=== PATIENT | male | born 1965 | race Caucasian/White ===

== ENCOUNTER 2017-05-16 06:31 | Day surgery (SDC) | payer BC, OTHER ==
[2017-05-14 12:59] VITALS: BMI 28.8
[2017-05-16 06:59] VITALS: TEMP 97.7
[2017-05-16] MEDS ORDERED: BUPIVACAINE HCL/PF 0.5% (5MG/ML) 10 ML VIAL ONE (07:44)
--- NOTE | 2017-05-16 07:44 | HP ---
History & Physical Update - History History: No Change - Physical Physical: No Change - Assessment Assessment: No Change - Plan Plan: No Change
[2017-05-16] MEDS ORDERED: MIDAZOLAM HCL 2 MG/2 ML SINGLE DOSE VIAL ONE ×2 (07:55)
[2017-05-16] MEDS ORDERED: ROCURONIUM BROMIDE 50 MG/5 ML VIAL ONE (07:55)
[2017-05-16] MEDS ORDERED: PROPOFOL 20 ML ONE (07:55)
[2017-05-16] MEDS ORDERED: DEXAMETHASONE SOD PHOSPHATE 4 MG/1 ML VIAL ONE (08:30)
[2017-05-16] MEDS ORDERED: ceFAZolin SODIUM 1 GM VIAL ONE (08:30)
[2017-05-16] MEDS ORDERED: ceFAZolin SODIUM 1 GM VIAL IVPB ONE (08:32)
[2017-05-16] MEDS ORDERED: BUPIVACAINE HCL/PF 0.5% (5MG/ML) 10 ML VIAL IJ ONE (08:41)
[2017-05-16] MEDS ORDERED: NEOSTIGMINE METHYLSULFATE 0.5 MG/ML - 10 ML MDV ONE (10:32)
[2017-05-16] MEDS ORDERED: GLYCOPYRROLATE 0.2 MG/1 ML VIAL ONE (10:34)
[2017-05-16] MEDS ORDERED: KETOROLAC TROMETHAMINE 30 MG/1 ML VIAL ONE (10:35)
[2017-05-16] MEDS ORDERED: ONDANSETRON 4 MG/2 ML VIAL IVPUSH PRN (11:18)
[2017-05-16] MEDS ORDERED: oxyCODONE HCL 5 MG TABLET PO PRN (11:18)
--- NOTE | 2017-05-16 11:23 | OP ---
Operative Note - Note: Operative Date: 05/16/17 Pre-Operative Diagnosis: LEFT INGUINAL HERNIA, R/O BILATERAL INGUINAL HERNIA Operation: ROBOTIC LEFT INGUINAL HERNIA REPAIR WITH MESH AND EXCISION OF LIPOMA OF THE CORD Findings: MODERATE SIZED INDIRECT LEFT INGUINAL HERNIA CONTAINING OMENTUM LARGE LIPOMA OF THE CORD, MINISCULE DIMPLING OF THE RIGHT INTERNAL INGUINAL RING Implants: PROGRIP MESH Post-Operative Diagnosis: Other (LEFT INGUINAL HERNIA AND LIPOMA OF THE CORD) Surgeon: Alberto Keenan Lab Rn: Therese Cortes Anesthesia: General Specimens Removed: LIPOMA OF THE CORD Estimated Blood Loss (mls): 5 Operative Report Dictated: Yes
--- NOTE | 2017-05-16 11:24 | SURG ---
Surgery Remodeler Note Remodeler: Therese Cortes PA-C Date of Service: 05/16/17 Diagnosis: LEFT INGUINAL HERNIA, R/O BILATERAL INGUINAL HERNIA Procedure: ROBOTIC LEFT INGUINAL HERNIA REPAIR WITH MESH AND EXCISION OF LIPOMA OF THE CORD I was present for the entirety of the operative procedure. For further detail, please refer to operative report. Visit type - Case Type Case Type: Scheduled Admission - Emergency Emergency Visit: No - New patient This patient is new to me today: Yes Date on this admission: 05/16/17 - Critical Care Critical Care patient: No
[2017-05-16] MEDS ORDERED: LACTATED RINGERS SOLUTION 1,000 ML IV SCH (11:30)
[2017-05-16 14:31] VITALS: BP 117/70; PULSE 74
--- NOTE | 2017-05-16 14:45 | OP ---
DATE OF OPERATION: 05/16/2017 PROCEDURE: Robotic-assisted laparoscopic left inguinal hernia repair and excision of a lipoma of the cord. PREOPERATIVE DIAGNOSIS: Left inguinal hernia. POSTOPERATIVE DIAGNOSES: Left inguinal hernia and lipoma of the cord. SURGEON: Alberto Keenan MD RENTAL COORDINATOR: ROSALINE Gross ANESTHESIA: General endotracheal. FINDINGS AND PROCEDURE: This is a 51-year-old male who presents with left inguinal bulge associated with pain on exertion. Patient has a preoperative CT scan that revealed bilateral fat-containing inguinal hernia, left more than right. On physical exam, the patient has a reducible 2-cm bulge at the left inguinal region and a positive silk-glove sign. In the right inguinal region, there was no discernible defect or bulge on Valsalva maneuver and there was a negative silk-glove sign. So patient was advised elective inguinal hernia repair, possible bilateral, and consent was obtained after discussing the risks, benefits, and alternatives to the procedure. Patient was brought to the operating room and placed in the supine position. General endotracheal anesthesia was administered. Calvo catheter was inserted and the abdomen was prepped and draped in the usual sterile fashion. Both arms were tucked to the sides. The peritoneal cavity was entered using the Veress needle technique via an 8-mm supraumbilical incision to the left of the midline. Pneumoperitoneum was established. An 8-mm port was inserted into the incision followed by the insertion of the 3D laparoscope. The peritoneal cavity was carefully inspected and was noted to be free of inadvertent injury. Patient was then placed in the steep Trendelenburg position. The left inguinal region was inspected and was noted to contain a moderate-sized internal ring defect with a small piece of omentum incarcerating to the hernia sac. On the right side, a minuscule indentation of the internal ring was noted, but the edge of the peritoneum was still visible. Two 8-mm ports were inserted at the same level on each side 8 mm away from the supraumbilical port. The target organ was set and the robotic arms were docked. The EndoWrist romina connected to monopolar cautery was inserted in the right-sided port and the fenestrated bipolar forceps was inserted in the left-sided port. It was decided upon to repair the left inguinal hernia only. The undersigned scrubbed out and commenced the console part of the procedure. The parietal peritoneum was scored at the level of the anterior-superior iliac spine towards the median umbilical ligament using the EndoWrist romina. Then, a preperitoneal pocket was then created by using blunt and sharp dissection with both instruments. Using the inferior epigastric vessel as the landmark, dissection was carried medially towards the underside of the symphysis pubis. Laterally, this dissection was carried towards the anterior-superior iliac spine and inferiorly towards the hernia sac. The spermatic cord vessels were identified and isolated from the iliac vessels medially and the psoas muscle inferolaterally. The hernia sac was traced towards the tip and this was dissected away from the spermatic vessels and the vas deferens. A large lipoma of the cord at the lateral portion was also excised. The hernia sac was dissected all the way superiorly down until at least about 7 cm away from the attenuated internal ring. Thorough dissection of the peritoneal reflection was done until an adequate space was created for mesh placement. The 15 x 10.5-cm ProGrip mesh was then deployed and placed in such a way that there is at least 5 cm circumferential overlap around the indirect inguinal hernia. The mesh also covered the potential direct hernia site and the femoral hernia site. After deployment was deemed satisfactory, the peritoneal pocket was closed with running V-Loc 2-0 sutures. The lipoma of the cord was placed in an Endobag and extracted via the right-sided port. The robotic arms were then undocked and the pneumoperitoneum was evacuated. The ports were removed and the wounds were closed with subcuticular Biosyn 4-0 sutures reinforced with Dermabond. The Calvo catheter was removed and the patient was successfully extubated. The patient was transferred to the postanesthesia care unit in satisfactory condition. Estimated blood loss was about 5 mL. Wound class clean. The patient received 2 g of cefazolin prior to the start of the procedure. Kiki [id number] MTDTonie
--- NOTE | 2017-05-18 17:11 | PATH ---
Surgical Pathology Report Patient Name: CONTRERAS IBARRA [facility]. Rec. #: [id number] /Age/Gender: 1965 (Age: 51) / M Account: [id number] Location: [facility] SURGICAL Taken: 05/16/2017 Received: 05/16/2017 Reported: 05/18/2017 Physicians: Alberto Keenan M.D. Specimen(s) Received LIPOMA OF CORD Clinical History Left inguinal hernia Final Diagnosis SOFT TISSUE, LEFT INGUINAL, EXCISION: BENIGN ADIPOSE TISSUE CONSISTENT WITH CORD LIPOMA. Electronically Signed Chan Reed M.D. Gross Description Received in formalin labeled "lipoma of the cord," is a 6.0 x 3.4 x 1.5 cm portion of yellow, lobulated adipose tissue with attached fibromembranous tissue. Sectioning reveals homogeneous yellow, smooth fat. No areas of hemorrhage or necrosis are identified. Airline Radio Operator sections are submitted in one cassette. 05/16/2017 saudi05/16/2017
== END 2017-05-16 14:20 | disposition home or self-care (01) ==
LOC: JASU-SURG 06:31
PROVIDERS: ATTEND Surgery
PROC: 8E0W4CZ Robotic Assisted Procedure of Trunk Region, Percutaneous Endoscopic Approach (ICD-10-PCS; 2017-05-16)
PROC: 0YU64JZ Supplement Left Inguinal Region with Synthetic Substitute, Percutaneous Endoscopic Approach (ICD-10-PCS; principal; 2017-05-16 08:00)
DX: K40.90 Unilateral inguinal hernia, without obstruction or gangrene, not specified as recurrent (principal); D17.6 Benign lipomatous neoplasm of spermatic cord
CPT/HCPCS: 49650; S2900; 88304-TC; 94760

== ENCOUNTER 2023-07-27 04:40 | Day surgery (SDC) | payer BC, OTHER ==
[2023-07-25 19:56] VITALS: BMI 29.2
[2023-07-27] MEDS ORDERED: ACETAMINOPHEN 1000 MG/100 ML BAG IVPB ONE (13:47)
[2023-07-27] MEDS ORDERED: DEXTROSE 5%-0.45% SALINE 1,000 ML IV SCH (14:00)
[2023-07-27] MEDS ORDERED: IBUPROFEN 800 MG/8 ML IJ IVPB SCH (14:00)
[2023-07-27] MEDS ORDERED: ceFAZolin SODIUM 1 GM VIAL ONE (14:21)
[2023-07-27] MEDS ORDERED: LIDOCAINE HCL/PF 2% SDV 5ML VIAL ONE (14:21)
[2023-07-27] MEDS ORDERED: MIDAZOLAM HCL 2 MG/2 ML SINGLE DOSE VIAL ONE (14:21)
[2023-07-27] MEDS ORDERED: PROPOFOL 20 ML ONE (14:21)
[2023-07-27] MEDS ORDERED: FENTANYL CITRATE/PF 50 MCG/ML VIAL ONE (14:21)
[2023-07-27] MEDS ORDERED: ceFAZolin SODIUM 1 GM VIAL IVPB ONE (14:35)
[2023-07-27] MEDS ORDERED: DEXAMETHASONE SOD PHOSPHATE 4 MG/1 ML VIAL ONE (14:40)
[2023-07-27] MEDS ORDERED: oxyCODONE HCL 5 MG TABLET PO PRN (15:04)
[2023-07-27] MEDS ORDERED: ONDANSETRON 4 MG/2 ML VIAL IVPUSH PRN (15:04)
[2023-07-27] MEDS ORDERED: LACTATED RINGERS SOLUTION 1,000 ML IV SCH (15:15)
[2023-07-27 16:22] VITALS: PULSE 60; RESP 18
[2023-07-27 17:33] VITALS: BP 130/80; TEMP 98
== END 2023-07-27 17:28 | disposition home or self-care (01) ==
LOC: JASU-SURG 04:40
PROVIDERS: ATTEND Urology
PROC: 0T7D8DZ Dilation of Urethra with Intraluminal Device, Via Natural or Artificial Opening Endoscopic (ICD-10-PCS; principal; 2023-07-27 15:00)
DX: N40.1 Benign prostatic hyperplasia with lower urinary tract symptoms (principal); R35.1 Nocturia
CPT/HCPCS: C9740; L8699; 93005; 93010; 94760

== ENCOUNTER 2023-07-27 22:07 | Emergency (ER) | payer BC, OTHER ==
[2023-07-27 22:11] VITALS: BMI 29.2
[2023-07-27] MEDS ORDERED: LIDOCAINE HCL 2% JELLY 10 ML CARTRIDGE UR ONE (23:50)
[2023-07-27 23:59] LABS: EPI CELLS 10 /uL (0-25.1); HYALINE CASTS 1 /uL (0-3.1); PH,URINE 7.5 (5.0-8.0); URINE APPEARANCE TURBID; URINE BACTERIA 1 /uL (0-1359); URINE BILIRUBIN NEGATIVE (NEGATIVE); URINE COLOR RED; URINE GLUCOSE (UA) TRACE (NEGATIVE); URINE KETONE NEGATIVE (NEGATIVE); URINE LEUK ESTERASE 1+ (NEGATIVE); URINE NITRITE NEGATIVE (NEGATIVE); URINE PROTEIN 2+ (NEGATIVE); URINE RBC 26950 /uL (0-23.9); URINE UROBILINOGEN 0.2 mg/dL (0.2-1.0); URINE WBC 30 /uL (0-25.8)
[2023-07-28] MEDS ORDERED: CIPROFLOXACIN 500 MG TABLET (RESTRICTED TO ID) PO ONE (00:23)
[2023-07-28 01:09] VITALS: BP 121/67; PULSE 86; RESP 20; TEMP 98.5
== END 2023-07-28 03:16 | disposition home or self-care (01) ==
LOC: JER 22:07
DX: R33.9 Retention of urine, unspecified (principal); N32.89 Other specified disorders of bladder; R39.198 Other difficulties with micturition; N39.43 Post-void dribbling; R39.15 Urgency of urination; R10.30 Lower abdominal pain, unspecified
CPT/HCPCS: 76857; 81003; 87086; 99284-25